=== PATIENT | male | born 1990 | race Caucasian/White ===

== ENCOUNTER 2016-09-24 19:55 | Emergency (ER) | payer MEDICARE, OTHER ==
[~2016-09-24 19:55] MED LIST: ABILIFY PO; ADDERALL PO; CLEOCIN HCL300 M1 PO; CONCERTA PO; CVS PHARMACY; NO MEDICATIONS
== END 2016-09-25 00:04 | disposition home or self-care (01) ==
LOC: CFTX 19:55 → CED 19:55 → CFTX 22:02
DX: L02.411 Cutaneous abscess of right axilla (principal); F31.9 Bipolar disorder, unspecified; B19.20 Unspecified viral hepatitis C without hepatic coma; F17.210 Nicotine dependence, cigarettes, uncomplicated
CPT/HCPCS: 10060; 87070; 87077; 87186; 87205; 99283